=== PATIENT | male | born 1980 | race Two or more races ===

== ENCOUNTER → 2017-08-29 | Outpatient (CLI) | payer OTHER ==
--- NOTE | 2017-08-29 15:16 | XR ---
EXAMINATION TYPE: XR thoracic spine complete DATE OF EXAM: 08/29/2017 COMPARISON: NONE HISTORY: Back pain Alignment is anatomic. There is no compression deformities. Vertebral body height and disc interspa lisa are maintained. IMPRESSION: 1. No acute abnormality. If symptoms persist consider MRI. 2. bony density above the level of right clavicle likely related to the scapula but only partially in cluded on exam.
== END | disposition home or self-care (01) ==
LOC: RADXRMAIN 14:27
PROVIDERS: ATTEND Emergency Medicine
DX: M54.6 Pain in thoracic spine (principal)
CPT/HCPCS: 72072

== ENCOUNTER → 2017-09-05 | Outpatient (CLI) | payer OTHER ==
--- NOTE | 2017-09-05 14:32 | XR ---
EXAMINATION TYPE: PA chest and left rib series DATE OF EXAM: 09/05/2017 COMPARISON: NONE HISTORY: 37-year-old male left lower rib contusion, sprain TECHNIQUE: 5 views FINDINGS: Frontal view of the chest shows normal heart size, aorta, and pulmonary vasculature. No consolidation , pneumothorax, or pleural effusion. Evaluation of the left-sided ribs show minimally displaced fracture of the left lateral seventh rib. IMPRESSION: Minimally displaced fracture left lateral seventh rib. No acute cardiopulmonary process.
== END | disposition home or self-care (01) ==
LOC: RADXRMAIN 14:10
PROVIDERS: ATTEND Emergency Medicine
DX: S22.32XA Fracture of one rib, left side, initial encounter for closed fracture (principal)